=== PATIENT | female | born 1975 | race Caucasian/White ===

== ENCOUNTER 2020-05-15 11:53 | Outpatient (CLI) | payer OTHER ==
--- NOTE | 2020-05-15 15:15 | Ultrasound Report ---
PROCEDURE: Duplex Ext Veins Bilateral INDICATIONS: ALEXANDRO FLANNERY TECHNIQUE: Real-time imaging, as well as color and pulse Doppler interrogation, were performed of the deep veins of both legs from the inguinal ligament to the popliteal fossa. COMPARISON: None FINDINGS: The deep veins are normally compressible, and free of intraluminal thrombus. Color and pu lse Doppler demonstrate normal phasic intravascular flow. There is normal augmentation response to d istal compression maneuver. IMPRESSION: No DVT in the bilateral lower extremities. Reviewed by: Braulio Mcdonald on 05/15/2020 3:13 PM PDT Approved by: Braulio Mcdonald on 05/15/2020 3:13 PM PDT Station ID: [id number]
== END 2020-05-15 11:54 | disposition home or self-care (01) ==
LOC: DI 11:53
PROVIDERS: ATTEND Nurse Practitioner Family
DX: I83.90 Asymptomatic varicose veins of unspecified lower extremity (principal)
CPT/HCPCS: 93970